=== PATIENT | male | born 1965 ===

== ENCOUNTER 2023-04-09 14:21 | Inpatient (IN) | payer MEDICARE, MEDICAID, SELFPAY ==
[2023-04-09 14:31] VITALS: BP 199/119; PULSE 62; RESP 18; TEMP 36.7; O2SAT 97
[2023-04-09] MEDS: cloNIDine HCL 0.1 MG TABLET PO ×2 (15:44→20:16)
--- NOTE | 2023-04-09 17:06 | P.CONHOSP_ITS ---
History of Present Illness Data of Consult Service Date: 04/09/23 Requesting physician: Molly Morales Primary Care Provider: Nonstaff Physician HPI Reason for consult: medical h&p, uncontrolled bp 58-year-old male with history of hypertension, hyperlipidemia, GERD, nephrolithiasis admitted to Psychiatry with consult placed hospital service for medical H and P in for evaluation of elevated blood pressure. The patient has been noncompliant with medications. He has no recent prescriptions of any antihypertensives but it does appear at 1 point he was prescribed amlodipine 10 mg. On arrival to the unit, blood pressure was 199/119. In the ED, blood pressures were 188/106 and 172/108. Patient was given 0.1 mg clonidine about 1.5 hours ago and on manual recheck by me, blood pressure is 130/90. He has no complaints at this time. On review of ED record, hematology studies unremarkable, renal function electrolyte levels normal. EKG showed NSR, rate [address]/T-wave abnormality. Urine tox screen positive for cocaine which he reports is inhaled only. Reports occasional alcohol use and is an occasional cigarette smoker. Review of Systems Review of Systems: General: No fevers, malaise, unintentional weight loss HEENT: No blurred vision, diplopia. No sore throat, nasal congestion, rhinorrhea, sinus pain, ear pain Cardiovascular: No chest pain, palpitations, or leg edema Respiratory: No shortness of breath, wheezing, cough GI: No abdominal pain, nausea, vomiting, diarrhea, constipation, melena, hematochezia : No dysuria, hematuria, increased urinary frequency, decreased urinary output MSK: No myalgia, back pain Neuro: No headaches, weakness, paresthesias Skin: No rashes or lesions [facility] Medical History (Updated 04/09/23 @ 17:09 by LAURO De Guzman) History of nephrolithiasis GERD (gastroesophageal reflux disease) Cocaine abuse Hyperlipidemia Hypertension Advance Directives: No Advance Directives Information Provided: Yes Meds Allergies Allergy/AdvReac Type Severity Reaction Status Date / Time No Known Allergies Allergy Verified 04/09/23 14:31 Active Medications: Current Medications Acetaminophen (Acetaminophen 325 Mg Tablet) 650 mg PO Q6H PRN PRN Reason: Headache/Pain Mild Scale (1-3) Al Hydroxide/Mg Hydroxide (Magnesium Hydrox/Alum Hydrox 30 Ml Oral.Susp) 30 ml PO Q6H PRN PRN Reason: Heartburn/Nausea Clonidine HCl (Clonidine Hcl 0.1 Mg Tablet) 0.1 mg PO BID PRN; Protocol PRN Reason: Anxiety Last Admin: 04/09/23 15:44 Dose: 0.1 mg Hydroxyzine HCl (Hydroxyzine Hcl 50 Mg Tablet) 50 mg PO BID PRN PRN Reason: Anxiety Magnesium Hydroxide (Milk Of Magnesia 30 Ml Oral.Susp) 30 ml PO DAILY PRN PRN Reason: Constipation Nicotine (Nicotine 14 Mg Patch.Td24) 14 mg TRANSDERMA DAILY MARGOTH Nicotine Polacrilex (Nicotine Polacrilex 2 Mg Gum) 4 mg BUCCAL Q2H PRN PRN Reason: Nicotine Cravings Trazodone HCl (Trazodone Hcl 50 Mg Tablet) 50 mg PO BEDTIME MRX1 PRN PRN Reason: Insomnia Home Medications Medication Instructions Recorded Confirmed Last Taken Type atorvastatin 20 mg tablet 20 mg PO BEDTIME 04/09/23 04/09/23 Unknown History clonidine HCl 0.1 mg tablet 0.1 mg PO BID PRN anxiety 04/09/23 04/09/23 Unknown History hydroxyzine pamoate 50 mg capsule 50 mg PO TID PRN anxiety 04/09/23 04/09/23 Unknown History paliperidone palmitate 234 mg/1.5 156 mg IM Q4W 04/09/23 04/09/23 Unknown History mL intramuscular syringe (Invega Sustenna) risperidone 0.25 mg tablet 0.25 mg PO BEDTIME 04/09/23 04/09/23 Unknown History trazodone 100 mg tablet 100 mg PO BEDTIME 04/09/23 04/09/23 Unknown History Physical Exam Vital Signs and Narrative: Vital Signs: Last Vital Signs Temp 98.1 F 04/09/23 14:31 Pulse 62 04/09/23 14:31 Resp 18 04/09/23 14:31 BP 199/119 H 04/09/23 14:31 Pulse Ox 97 04/09/23 14:31 O2 Del Method Room Air 04/09/23 14:31 Constitutional - Awake and Alert, No apparent distress Eyes - PERRLA, EOMI Cardiovascular - S1S2, RRR, No edema Respiratory - Normal lung expansion, Normal respiratory effort, No respiratory distress, CTA bilaterally Gastrointestinal - NT / ND; +BS; No rebound or guarding Extremities - no calf tenderness bilaterally, no swelling Musculoskeletal - Normal inspection, normal ROM Skin - Warm/Dry Neurological - Alert & oriented x3, CN II-XII in tact, 5/5 strength BUE and BLE Assessment and Plan (1) Routine medical exam: Status: Acute (2) Uncontrolled hypertension: Status: Acute Plan 58-year-old male with history of hypertension, hyperlipidemia, GERD, nephrolithiasis admitted to Psychiatry with consult placed hospital service for medical H and P in for evaluation of elevated blood pressure. #Mood disorder -plan per psychiatry #HTN -blood pressure uncontrolled though improved with 0.1mg clonidine. On manual recheck bp 130/90 -initiate amlodipine 5mg daily -monitor bp #HLD -continue atorvastatin Thank you for allowing me to participate in this consult. Signing off at this time. Please do not hesitate to call for further questions or for any acute medical issues.
[2023-04-09 17:09] VITALS: BP 130/90
--- NOTE | 2023-04-09 18:06 | PC.ADMIT ---
Heather was admitted to at 1430 from [facility] on a CV for treatment of Unspecified Schizophrenia and substance abuse. He was initially admitted to [facility] after relaying to sister voices were telling him to kill himself and endorsed SI with a plan to jump off a bridge. Upon wellness check, patient appeared disorientated, endorsing AVH and not performing ADL's. Upon admission, he is oriented to person and place but lacks insight on situation, I'm not really sure why they brought me here, I just remember nosey people taking me out of my home and brining me to the hospital . He was cooperative during admission process though appeared internally preoccupied, self dialoguing during entire interaction with this nurse. Stated he was currently hearing voices but would not elaborate on the context of what the voices were saying. Denies depression and current SI/HI but reported feeling anxious. Stated he was currently hearing voices but would not elaborate on context. When asked if the patient had thoughts of harming others he stated Sometimes, but not right now. I just feel like someone's going to hurt me . Affect flat, thought process is disorganized. Patient reports use of cocaine prior to admission and remote history of alcohol and marijuana use. Tox screen came back positive for cocaine. Reports poor sleep within last week and patient appeared to be nodding off towards end of admission assessment asking are we almost done, my brain is so foggy I just want to sleep . Denies any physical complaints, sharps check done with another nurse and patient placed on 15 minute checks for safety.
[2023-04-09 20:00] VITALS: BP 137/107; PULSE 83; RESP 18; TEMP 36.9; O2SAT 98
[2023-04-09] MEDS: Atorvastatin Calcium 20 MG TABLET PO (20:16)
[2023-04-09] MEDS: traZODone HCL 100 MG TABLET PO (20:16)
[2023-04-09 20:50] VITALS: BP 126/86; PULSE 68; RESP 18
[2023-04-09] MEDS: risperiDONE 0.25 MG TABLET PO (20:50)
[2023-04-10 07:46] VITALS: BP 136/92; PULSE 72; RESP 16; TEMP 36.5; O2SAT 100
[2023-04-10] MEDS: Nicotine 14 MG PATCH.TD24 TRANSDERMA (08:22)
[2023-04-10] MEDS: amLODIPine Besylate 5 MG TABLET PO (08:23)
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
[2023-04-10 09:29] LABS: MANUAL DIFF FLAG NO
[2023-04-10 09:34] LABS: Basophils Percent Auto 0.5 % (0-2); Eosinophils Absolute Auto 0.2 X10*3/uL (0.0-0.4); Eosinophils Percent Auto 3.2 % (0-4); Hematocrit 47.8 % (42.0-52.0); Hemoglobin 15.9 g/dl (14.0-18.0); Imm Gran Abs Auto 0.01 X10*3/uL (0.00-0.03); Imm Gran Pct Auto 0.2 % (0.0-0.4); Lymphocytes Absolute Auto 1.3 X10*3/uL (1.2-4.9); Lymphocytes Percent Auto 20.6 % (20-40); Mean Corpuscular HGB Conc 33.3 g/dl (31.0-36.0); Mean Corpuscular Hemoglobin 30.2 pg (27.0-33.0); Mean Corpuscular Volume 90.9 fL (80.0-98.0); Mean Platelet Volume 10.4 fL (9.4-12.4); Monocytes Absolute Auto 0.5 X10*3/uL (0.1-1.2); Monocytes Percent Auto 7.7 % (2-11); Neutrophils Absolute Auto 4.3 x10*3/uL (2.0-8.3); Neutrophils Percent Auto 67.8 % (45-73); Platelet Count 194 X10*3/uL (160-400); Red Blood Count 5.26 X10*6/uL (4.60-5.80); Red Cell Distribution Width 13.7 % (11.0-16.0); White Blood Count 6.3 X10*3/uL (4.8-10.8)
[2023-04-10 09:55] LABS: Alanine Aminotransferase 12 U/L (0-40); Alkaline Phosphatase 70 U/L (39-117); Anion Gap 11 (12-20); Aspartate Amino Transferase 12 U/L (5-37); Bilirubin Direct 0.2 mg/dL (0.0-0.5); Bilirubin Total 0.6 mg/dL (0.0-1.0); Blood Urea Nitrogen 20 mg/dL (9-16); Calcium 9.5 mg/dL (8.4-10.2); Carbon Dioxide 22 mmol/L (22-29); Chloride 111 mmol/L (96-108); Cholesterol 116 mg/dL (<200); Estimated Glomerular Filt Rate > 60; Glucose Fasting 86 mg/dL (60-99); HDL Cholesterol 47 mg/dL (>40); LDL Cholesterol Calculated 54 mg/dL (<100); Potassium 4.1 mmol/L (3.3-5.1); Sodium 140 mmol/L (135-145); Total Protein 7.1 g/dL (6.5-8.0); Triglycerides 75 mg/dL (<150)
[2023-04-10 10:11] LABS: Free T4 (Free Thyroxine) 1.19 ng/dL (0.71-1.85); Thyroid Stimulating Hormone 1.28 uIU/mL (0.32-4.0)
[2023-04-10 20:10] VITALS: BP 160/99; PULSE 65; RESP 15; TEMP 36.2; O2SAT 98
[2023-04-10] MEDS: risperiDONE 0.25 MG TABLET PO (20:10)
[2023-04-10] MEDS: Atorvastatin Calcium 20 MG TABLET PO (20:10)
[2023-04-10] MEDS: traZODone HCL 100 MG TABLET PO (20:10)
[2023-04-10] MEDS: hydrOXYzine HCL 50 MG TABLET PO (20:10)
[2023-04-11 07:00] VITALS: BMI 26.2
[2023-04-11 09:08] VITALS: BP 145/88; PULSE 96; RESP 18; TEMP 36.4; O2SAT 96
[2023-04-11] MEDS: amLODIPine Besylate 5 MG TABLET PO (09:10)
[2023-04-11] MEDS: Nicotine 14 MG PATCH.TD24 TRANSDERMA (09:54)
--- NOTE | 2023-04-11 12:23 | HO.PSYCHPN ---
Subjective Subjective Date of Service: 04/11/23 Reason For Visit: F20.9, F14.10 Interim History: The nursing staff reported the patient is a Compliant with treatment, anxious and depressed denies active auditory hallucinations on interview. He slept 8 hours. On interview also he denies side effects with current treatment he looks dysphoric but able to contract for safety. Mental Status Exam Mental Status Exam Patient Appearance: Appropriate Patient Orientation: Person and Situation Level of Consciousness: Awake and Appropriate Patient Behavior: Guarded and Passive Mood Description: Withdrawn Affect Description: Constricted Patient Cognition Impaired: Yes Ability to Follow Directions: Good Speech Pattern: Clear Hallucinations: None Delusions: Paranoid Ideation Thought Process: Distracted and Slowed Thinking Thought Content: positive for [place] and positive for Circumstantial Judgement: Fair Diagnostics Vital Signs (24Hr): Vital Signs - 24 hr 04/10/23 20:10 04/11/23 09:08 Temperature 97.1 F 97.5 F Pulse Rate 65 96 Respiratory Rate 15 18 Blood Pressure 160/99 H 145/88 H Pulse Oximetry 98 96 Oxygen Delivery Method Room Air Room Air Labs 04/10/23 09:07 04/10/23 09:07 Labs: Laboratory Results - last 48 hr 04/10/23 09:07 WBC 6.3 RBC 5.26 Hgb 15.9 Hct 47.8 MCV 90.9 MCH 30.2 MCHC 33.3 RDW 13.7 Plt Count 194 MPV 10.4 Immature Gran % (Auto) 0.2 Neut % (Auto) 67.8 Lymph % (Auto) 20.6 [place] % (Auto) 7.7 Eos % (Auto) 3.2 Baso % (Auto) 0.5 Lymph # (Auto) 1.3 [place] # (Auto) 0.5 Eos # (Auto) 0.2 Baso # (Auto) 0.0 Abs Immat Gran (auto) 0.01 Absolute Neuts (auto) 4.3 Absolute Nucleated RBC 0.000 Nucleated RBC % (auto) 0.0 Sodium 140 Potassium 4.1 Chloride 111 H Carbon Dioxide 22 Anion Gap 11 L BUN 20 H Creatinine 0.98 Estim Creat Clear Calc TNP Estimated GFR > 60 Fasting Glucose 86 Calcium 9.5 Total Bilirubin 0.6 Direct Bilirubin 0.2 AST 12 ALT 12 Alkaline Phosphatase 70 Total Protein 7.1 Albumin 4.0 Triglycerides 75 Cholesterol 116 LDL Cholesterol, Calc 54 HDL Cholesterol 47 TSH 1.28 Free T4 1.19 Medications Medications Current Medications Acetaminophen (Acetaminophen 325 Mg Tablet) 650 mg PO Q6H PRN PRN Reason: Headache/Pain Mild Scale (1-3) Al Hydroxide/Mg Hydroxide (Magnesium Hydrox/Alum Hydrox 30 Ml Oral.Susp) 30 ml PO Q6H PRN PRN Reason: Heartburn/Nausea Amlodipine Besylate (Amlodipine Besylate 5 Mg Tablet) 5 mg PO DAILY MARGOTH; Protocol Last Admin: 04/11/23 09:10 Dose: 5 mg Atorvastatin Calcium (Atorvastatin Calcium 20 Mg Tablet) 20 mg PO BEDTIME MARGOTH Last Admin: 04/10/23 20:10 Dose: 20 mg Clonidine HCl (Clonidine Hcl 0.1 Mg Tablet) 0.1 mg PO BID PRN; Protocol PRN Reason: Anxiety Last Admin: 04/09/23 15:44 Dose: 0.1 mg Clonidine HCl (Clonidine Hcl 0.1 Mg Tablet) 0.1 mg PO BID PRN; Protocol PRN Reason: anxiety Last Admin: 04/09/23 20:16 Dose: 0.1 mg Hydroxyzine HCl (Hydroxyzine Hcl 50 Mg Tablet) 50 mg PO TID PRN PRN Reason: anxiety Last Admin: 04/10/23 20:10 Dose: 50 mg Magnesium Hydroxide (Milk Of Magnesia 30 Ml Oral.Susp) 30 ml PO DAILY PRN PRN Reason: Constipation Nicotine (Nicotine 14 Mg Patch.Td24) 14 mg TRANSDERMA DAILY [facility] Last Admin: 04/11/23 09:54 Dose: 14 mg Nicotine Polacrilex (Nicotine Polacrilex 2 Mg Gum) 4 mg BUCCAL Q2H PRN PRN Reason: Nicotine Cravings Paliperidone Palmitate (Paliperidone Palmitate 234 Mg/1.5 Ml Syringe) 234 mg IM Q28D [facility] Risperidone (Risperidone 0.25 Mg Tablet) 0.25 mg PO BEDTIME MARGOTH Last Admin: 04/10/23 20:10 Dose: 0.25 mg Trazodone HCl (Trazodone Hcl 50 Mg Tablet) 50 mg PO BEDTIME MRX1 PRN PRN Reason: Insomnia Trazodone HCl (Trazodone Hcl 100 Mg Tablet) 100 mg PO BEDTIME MARGOTH Last Admin: 04/10/23 20:10 Dose: 100 mg Allergies Allergies Allergy/AdvReac Type Severity Reaction Status Date / Time No Known Allergies Allergy Verified 04/09/23 14:31 Assessment & Plan Assessment & Plan (1) Schizophrenia: Status: Acute Code(s): F20.9 - Schizophrenia, unspecified (2) Opioid abuse: Status: Acute Code(s): F11.10 - Opioid abuse, uncomplicated Plan Patient is a 58 year old male with hx of Schizophrenia and polysubstance use who presented to [facility] ER secondary to concern from his sister and ACCS worker d/t pt telling his sister that the voices were telling him to kill himself and endorsed suicidal ideation with plan to jump off a bridge. Plan: CV 15 minute safety checks obtain collateral continue home medications. Possible section 35 by family clarify last dose of invega inj monitor for suicidality encourage sobriety Reason for continued inpatient stay Substantial Risk for: inability to function, rapid decompensation and med/psych decompensation Time Spent With Patient Time: Total time managing care of this patient today __20__ minutes.
[2023-04-11 21:20] VITALS: BP 160/102; PULSE 75; RESP 18; TEMP 36.7; O2SAT 98
[2023-04-11] MEDS: traZODone HCL 100 MG TABLET PO (21:23)
[2023-04-11] MEDS: cloNIDine HCL 0.1 MG TABLET PO (21:23)
[2023-04-11] MEDS: risperiDONE 0.25 MG TABLET PO (21:23)
[2023-04-11] MEDS: Atorvastatin Calcium 20 MG TABLET PO (21:23)
[2023-04-12 07:10] VITALS: BP 168/108; PULSE 78; TEMP 36.3; O2SAT 99
[2023-04-12] MEDS: amLODIPine Besylate 5 MG TABLET PO (07:50)
[2023-04-12] MEDS: Nicotine 14 MG PATCH.TD24 TRANSDERMA (07:50)
--- NOTE | 2023-04-12 08:51 | P.PNPSI_ITS ---
Subjective Subjective Date of Service: 04/12/23 Reason For Visit: F20.9, F14.10 Subjective Notes: Conditional Voluntary Interim History: Pt reports he feels better in that less voices and he feels calmer. He states I'm doing what everyone wants me to do, taking care of everything. He does report voices of male and female continue to happen and are disturbing to him, he asks for additional medication for voices. He was started on low dose of risperidone, will increase to 1mg po qhs. he is also on invega sustenna 234mg IM- due in 04/24, may be able to give it sooner. Review of Systems Review of Systems General: No fevers, malaise, unintentional weight loss HEENT: No blurred vision, diplopia. No sore throat, nasal congestion, rhinorrhea, sinus pain, ear pain Cardiovascular: No chest pain, palpitations, or leg edema Respiratory: No shortness of breath, wheezing, cough GI: No abdominal pain, nausea, vomiting, diarrhea, constipation, melena, hematochezia : No dysuria, hematuria, increased urinary frequency, decreased urinary output MSK: No myalgia, back pain Neuro: No headaches, weakness, paresthesias Skin: No rashes or lesions Constitutional: Reports as per HPI Eyes: Reports as per HPI Reports as per HPI Cardiovascular: Reports as per HPI Respiratory: Reports as per HPI Gastrointestinal: Reports as per HPI Genitourinary: Reports as per HPI Musculoskeletal: Reports as per HPI Skin/Breast: Reports as per HPI Reports as per HPI Psychiatric: Reports as per HPI Endocrine: Reports as per HPI Hematologic/Lymphatic: Reports as per HPI Allergic/Immunologic: Reports as per HPI Mental Status Exam Mental Status Exam Patient Appearance: Appropriate Patient Orientation: Person and Situation Level of Consciousness: Awake and Appropriate Patient Behavior: Guarded and Passive Mood Description: Withdrawn Affect Description: Constricted Patient Cognition Impaired: Yes Ability to Follow Directions: Good Speech Pattern: Clear Diagnostics Vital Signs (24Hr): Vital Signs - 24 hr 04/11/23 09:08 04/11/23 21:20 04/12/23 07:10 Temperature 97.5 F 98.1 F 97.3 F Pulse Rate 96 75 78 Respiratory Rate 18 18 Blood Pressure 145/88 H 160/102 H 168/108 H Pulse Oximetry 96 98 66 L Oxygen Delivery Method Room Air Room Air Room Air BMI result Body Mass Index 26.2 Labs 04/10/23 09:07 04/10/23 09:07 Labs: Laboratory Results - last 48 hr 04/10/23 09:07 WBC 6.3 RBC 5.26 Hgb 15.9 Hct 47.8 MCV 90.9 MCH 30.2 MCHC 33.3 RDW 13.7 Plt Count 194 MPV 10.4 Immature Gran % (Auto) 0.2 Neut % (Auto) 67.8 Lymph % (Auto) 20.6 [place] % (Auto) 7.7 Eos % (Auto) 3.2 Baso % (Auto) 0.5 Lymph # (Auto) 1.3 [place] # (Auto) 0.5 Eos # (Auto) 0.2 Baso # (Auto) 0.0 Abs Immat Gran (auto) 0.01 Absolute Neuts (auto) 4.3 Absolute Nucleated RBC 0.000 Nucleated RBC % (auto) 0.0 Sodium 140 Potassium 4.1 Chloride 111 H Carbon Dioxide 22 Anion Gap 11 L BUN 20 H Creatinine 0.98 Estim Creat Clear Calc TNP Estimated GFR > 60 Fasting Glucose 86 Calcium 9.5 Total Bilirubin 0.6 Direct Bilirubin 0.2 AST 12 ALT 12 Alkaline Phosphatase 70 Total Protein 7.1 Albumin 4.0 Triglycerides 75 Cholesterol 116 LDL Cholesterol, Calc 54 HDL Cholesterol 47 TSH 1.28 Free T4 1.19 Medications Medications Current Medications Acetaminophen (Acetaminophen 325 Mg Tablet) 650 mg PO Q6H PRN PRN Reason: Headache/Pain Mild Scale (1-3) Al Hydroxide/Mg Hydroxide (Magnesium Hydrox/Alum Hydrox 30 Ml Oral.Susp) 30 ml PO Q6H PRN PRN Reason: Heartburn/Nausea Amlodipine Besylate (Amlodipine Besylate 5 Mg Tablet) 5 mg PO DAILY MARGOTH; Protocol Last Admin: 04/12/23 07:50 Dose: 5 mg Atorvastatin Calcium (Atorvastatin Calcium 20 Mg Tablet) 20 mg PO BEDTIME MARGOTH Last Admin: 04/11/23 21:23 Dose: 20 mg Clonidine HCl (Clonidine Hcl 0.1 Mg Tablet) 0.1 mg PO BID PRN; Protocol PRN Reason: Anxiety Last Admin: 04/11/23 21:23 Dose: 0.1 mg Clonidine HCl (Clonidine Hcl 0.1 Mg Tablet) 0.1 mg PO BID PRN; Protocol PRN Reason: anxiety Last Admin: 04/09/23 20:16 Dose: 0.1 mg Hydroxyzine HCl (Hydroxyzine Hcl 50 Mg Tablet) 50 mg PO TID PRN PRN Reason: anxiety Last Admin: 04/10/23 20:10 Dose: 50 mg Magnesium Hydroxide (Milk Of Magnesia 30 Ml Oral.Susp) 30 ml PO DAILY PRN PRN Reason: Constipation Nicotine (Nicotine 14 Mg Patch.Td24) 14 mg TRANSDERMA DAILY MARGOTH Last Admin: 04/12/23 07:50 Dose: 14 mg Nicotine Polacrilex (Nicotine Polacrilex 2 Mg Gum) 4 mg BUCCAL Q2H PRN PRN Reason: Nicotine Cravings Paliperidone Palmitate (Paliperidone Palmitate 234 Mg/1.5 Ml Syringe) 234 mg IM Q28D MARGOTH Risperidone (Risperidone 0.25 Mg Tablet) 0.25 mg PO BEDTIME MARGOTH Last Admin: 04/11/23 21:23 Dose: 0.25 mg Trazodone HCl (Trazodone Hcl 50 Mg Tablet) 50 mg PO BEDTIME MRX1 PRN PRN Reason: Insomnia Trazodone HCl (Trazodone Hcl 100 Mg Tablet) 100 mg PO BEDTIME MARGOTH Last Admin: 04/11/23 21:23 Dose: 100 mg Allergies Allergies Allergy/AdvReac Type Severity Reaction Status Date / Time No Known Allergies Allergy Verified 04/09/23 14:31 Assessment & Plan Assessment & Plan (1) Schizophrenia: Status: Acute Code(s): F20.9 - Schizophrenia, unspecified (2) Opioid abuse: Status: Acute Code(s): F11.10 - Opioid abuse, uncomplicated Plan Patient is a 58 year old male with hx of Schizophrenia and polysubstance use who presented to [facility] ER secondary to concern from his sister and ACCS worker d/t pt telling his sister that the voices were telling him to kill himself and endorsed suicidal ideation with plan to jump off a bridge. Plan: 04/12 increase risperidone to 1mg po qhs. He is also on Invega Sustenna 234mg IM, due in 04/24. clarify medication trial and see it he may respond better to different antipsychotic. Reason for continued inpatient stay Substantial Risk for: inability to function Time Spent With Patient Time: Total time managing care of this patient today ____ minutes.
[2023-04-12 19:48] VITALS: BP 171/93; PULSE 63; TEMP 36.7; O2SAT 98
[2023-04-12] MEDS: hydrOXYzine HCL 50 MG TABLET PO (23:59)
[2023-04-12] MEDS: traZODone HCL 50 MG TABLET PO (23:59)
[2023-04-12] MEDS: risperiDONE 1 MG TABLET PO (23:59)
[2023-04-12] MEDS: Atorvastatin Calcium 20 MG TABLET PO (23:59)
[2023-04-12] MEDS: traZODone HCL 100 MG TABLET PO (23:59)
[2023-04-13 07:30] VITALS: BP 163/105; PULSE 68; TEMP 36.3; O2SAT 97
[2023-04-13] MEDS: Nicotine 14 MG PATCH.TD24 TRANSDERMA (08:17)
[2023-04-13] MEDS: amLODIPine Besylate 5 MG TABLET PO (08:17)
--- NOTE | 2023-04-13 14:05 | HO.PSYCHPN ---
Subjective Subjective Date of Service: 04/13/23 Reason For Visit: F20.9, F14.10 Subjective Notes: Conditional Voluntary Interim History: Pt reports less voices with increase dose of risperidone. He reports sleeping and eating well. He has been more visible on the unit. NO behavioral concerns. No SI/HI. Taking medications as prescribed. Review of Systems Review of Systems General: No fevers, malaise, unintentional weight loss HEENT: No blurred vision, diplopia. No sore throat, nasal congestion, rhinorrhea, sinus pain, ear pain Cardiovascular: No chest pain, palpitations, or leg edema Respiratory: No shortness of breath, wheezing, cough GI: No abdominal pain, nausea, vomiting, diarrhea, constipation, melena, hematochezia : No dysuria, hematuria, increased urinary frequency, decreased urinary output MSK: No myalgia, back pain Neuro: No headaches, weakness, paresthesias Skin: No rashes or lesions Constitutional: Reports as per HPI Eyes: Reports as per HPI Reports as per HPI Cardiovascular: Reports as per HPI Respiratory: Reports as per HPI Gastrointestinal: Reports as per HPI Genitourinary: Reports as per HPI Musculoskeletal: Reports as per HPI Skin/Breast: Reports as per HPI Reports as per HPI Psychiatric: Reports as per HPI Endocrine: Reports as per HPI Hematologic/Lymphatic: Reports as per HPI Allergic/Immunologic: Reports as per HPI Mental Status Exam Mental Status Exam Patient Appearance: Appropriate Patient Orientation: Person and Situation Level of Consciousness: Awake and Appropriate Patient Behavior: Guarded and Passive Mood Description: Withdrawn Affect Description: Constricted Patient Cognition Impaired: Yes Ability to Follow Directions: Good Speech Pattern: Clear Diagnostics Vital Signs (24Hr): Vital Signs - 24 hr 04/12/23 19:48 04/13/23 07:30 Temperature 98.0 F 97.3 F Pulse Rate 63 68 Blood Pressure 171/93 H 163/105 H Pulse Oximetry 98 97 Oxygen Delivery Method Room Air Room Air BMI result Body Mass Index 26.2 Labs 04/10/23 09:07 04/10/23 09:07 Medications Medications Current Medications Acetaminophen (Acetaminophen 325 Mg Tablet) 650 mg PO Q6H PRN PRN Reason: Headache/Pain Mild Scale (1-3) Al Hydroxide/Mg Hydroxide (Magnesium Hydrox/Alum Hydrox 30 Ml Oral.Susp) 30 ml PO Q6H PRN PRN Reason: Heartburn/Nausea Amlodipine Besylate (Amlodipine Besylate 5 Mg Tablet) 5 mg PO DAILY MARGOTH; Protocol Last Admin: 04/13/23 08:17 Dose: 5 mg Atorvastatin Calcium (Atorvastatin Calcium 20 Mg Tablet) 20 mg PO BEDTIME MARGOTH Last Admin: 04/12/23 23:59 Dose: 20 mg Clonidine HCl (Clonidine Hcl 0.1 Mg Tablet) 0.1 mg PO BID PRN; Protocol PRN Reason: Anxiety Last Admin: 04/11/23 21:23 Dose: 0.1 mg Clonidine HCl (Clonidine Hcl 0.1 Mg Tablet) 0.1 mg PO BID PRN; Protocol PRN Reason: anxiety Last Admin: 04/09/23 20:16 Dose: 0.1 mg Hydroxyzine HCl (Hydroxyzine Hcl 50 Mg Tablet) 50 mg PO TID PRN PRN Reason: anxiety Last Admin: 04/12/23 23:59 Dose: 50 mg Magnesium Hydroxide (Milk Of Magnesia 30 Ml Oral.Susp) 30 ml PO DAILY PRN PRN Reason: Constipation Nicotine (Nicotine 14 Mg Patch.Td24) 14 mg TRANSDERMA DAILY [facility] Last Admin: 04/13/23 08:17 Dose: 14 mg Nicotine Polacrilex (Nicotine Polacrilex 2 Mg Gum) 4 mg BUCCAL Q2H PRN PRN Reason: Nicotine Cravings Paliperidone Palmitate (Paliperidone Palmitate 234 Mg/1.5 Ml Syringe) 234 mg IM Q28D MARGOTH Risperidone (Risperidone 1 Mg Tablet) 1 mg PO BEDTIME MARGOTH Last Admin: 04/12/23 23:59 Dose: 1 mg Trazodone HCl (Trazodone Hcl 50 Mg Tablet) 50 mg PO BEDTIME MRX1 PRN PRN Reason: Insomnia Last Admin: 04/12/23 23:59 Dose: 50 mg Trazodone HCl (Trazodone Hcl 100 Mg Tablet) 100 mg PO BEDTIME MARGOTH Last Admin: 04/12/23 23:59 Dose: 100 mg Allergies Allergies Allergy/AdvReac Type Severity Reaction Status Date / Time No Known Allergies Allergy Verified 04/09/23 14:31 Assessment & Plan Assessment & Plan (1) Schizophrenia: Status: Acute Code(s): F20.9 - Schizophrenia, unspecified (2) Opioid abuse: Status: Acute Code(s): F11.10 - Opioid abuse, uncomplicated Plan Patient is a 58 year old male with hx of Schizophrenia and polysubstance use who presented to [facility] ER secondary to concern from his sister and ACCS worker d/t pt telling his sister that the voices were telling him to kill himself and endorsed suicidal ideation with plan to jump off a bridge. Plan: 04/12 increase risperidone to 1mg po qhs. He is also on Invega Sustenna 234mg IM, due in 04/24. clarify medication trial and see it he may respond better to different antipsychotic. 04/13 continue tx. Reason for continued inpatient stay Substantial Risk for: inability to function Time Spent With Patient Time: Total time managing care of this patient today ____ minutes.
[2023-04-13 19:35] VITALS: BP 177/113; PULSE 68; RESP 16; TEMP 36.9; O2SAT 97
[2023-04-13] MEDS: Atorvastatin Calcium 20 MG TABLET PO (21:30)
[2023-04-13] MEDS: cloNIDine HCL 0.1 MG TABLET PO (21:31)
[2023-04-13] MEDS: risperiDONE 1 MG TABLET PO (21:31)
[2023-04-13] MEDS: traZODone HCL 100 MG TABLET PO (21:31)
[2023-04-13 21:39] VITALS: BP 170/100
[2023-04-13 22:46] VITALS: BP 146/76; PULSE 57; RESP 16; TEMP 36.8; O2SAT 98
[2023-04-14 07:10] VITALS: BP 169/98; PULSE 61; RESP 20; TEMP 36.7; O2SAT 97
[2023-04-14] MEDS: amLODIPine Besylate 5 MG TABLET PO ×2 (08:22→10:09)
[2023-04-14 09:40] VITALS: BP 164/100
[2023-04-14 16:30] VITALS: BP 138/98
--- NOTE | 2023-04-14 16:40 | HO.PSYCHPN ---
Subjective Subjective Date of Service: 04/14/23 Reason For Visit: F20.9, F14.10 Subjective Notes: Conditional Voluntary Interim History: Pt reports overall feel better. Pt reports less voices with increase dose of risperidone. He reports sleeping and eating well. He has been more visible on the unit. NO behavioral concerns. No SI/HI. Taking medications as prescribed. Review of Systems Review of Systems General: No fevers, malaise, unintentional weight loss HEENT: No blurred vision, diplopia. No sore throat, nasal congestion, rhinorrhea, sinus pain, ear pain Cardiovascular: No chest pain, palpitations, or leg edema Respiratory: No shortness of breath, wheezing, cough GI: No abdominal pain, nausea, vomiting, diarrhea, constipation, melena, hematochezia : No dysuria, hematuria, increased urinary frequency, decreased urinary output MSK: No myalgia, back pain Neuro: No headaches, weakness, paresthesias Skin: No rashes or lesions Constitutional: Reports as per HPI Eyes: Reports as per HPI Reports as per HPI Cardiovascular: Reports as per HPI Respiratory: Reports as per HPI Gastrointestinal: Reports as per HPI Genitourinary: Reports as per HPI Musculoskeletal: Reports as per HPI Skin/Breast: Reports as per HPI Reports as per HPI Psychiatric: Reports as per HPI Endocrine: Reports as per HPI Hematologic/Lymphatic: Reports as per HPI Allergic/Immunologic: Reports as per HPI Mental Status Exam Mental Status Exam Patient Appearance: Appropriate Patient Orientation: Person and Situation Level of Consciousness: Awake and Appropriate Patient Behavior: Guarded and Passive Mood Description: Withdrawn Affect Description: Constricted Patient Cognition Impaired: Yes Ability to Follow Directions: Good Speech Pattern: Clear Diagnostics Vital Signs (24Hr): Vital Signs - 24 hr 04/13/23 19:35 04/13/23 21:39 04/13/23 22:46 Temperature 98.4 F 98.2 F Pulse Rate 68 57 Respiratory Rate 16 16 Blood Pressure 177/113 H 170/100 H 146/76 H Pulse Oximetry 97 98 Oxygen Delivery Method Room Air Room Air 04/14/23 07:10 Temperature 98.1 F Pulse Rate 61 Respiratory Rate 20 Blood Pressure 169/98 H Pulse Oximetry 97 Oxygen Delivery Method Room Air BMI result Body Mass Index 26.2 Labs 04/10/23 09:07 04/10/23 09:07 Medications Medications Current Medications Acetaminophen (Acetaminophen 325 Mg Tablet) 650 mg PO Q6H PRN PRN Reason: Headache/Pain Mild Scale (1-3) Al Hydroxide/Mg Hydroxide (Magnesium Hydrox/Alum Hydrox 30 Ml Oral.Susp) 30 ml PO Q6H PRN PRN Reason: Heartburn/Nausea Amlodipine Besylate (Amlodipine Besylate 10 Mg Tablet) 10 mg PO DAILY MARGOTH; Protocol Atorvastatin Calcium (Atorvastatin Calcium 20 Mg Tablet) 20 mg PO BEDTIME MARGOTH Last Admin: 04/13/23 21:30 Dose: 20 mg Clonidine HCl (Clonidine Hcl 0.1 Mg Tablet) 0.1 mg PO BID PRN; Protocol PRN Reason: Anxiety Last Admin: 04/13/23 21:31 Dose: 0.1 mg Clonidine HCl (Clonidine Hcl 0.1 Mg Tablet) 0.1 mg PO BID PRN; Protocol PRN Reason: anxiety Last Admin: 04/09/23 20:16 Dose: 0.1 mg Hydroxyzine HCl (Hydroxyzine Hcl 50 Mg Tablet) 50 mg PO TID PRN PRN Reason: anxiety Last Admin: 04/12/23 23:59 Dose: 50 mg Magnesium Hydroxide (Milk Of Magnesia 30 Ml Oral.Susp) 30 ml PO DAILY PRN PRN Reason: Constipation Nicotine (Nicotine 14 Mg Patch.Td24) 14 mg TRANSDERMA DAILY MARGOTH Last Admin: 04/14/23 08:24 Dose: Not Given Nicotine Polacrilex (Nicotine Polacrilex 2 Mg Gum) 4 mg BUCCAL Q2H PRN PRN Reason: Nicotine Cravings Paliperidone Palmitate (Paliperidone Palmitate 234 Mg/1.5 Ml Syringe) 234 mg IM Q28D MARGOTH Risperidone (Risperidone 1 Mg Tablet) 1 mg PO BEDTIME MARGOTH Last Admin: 04/13/23 21:31 Dose: 1 mg Trazodone HCl (Trazodone Hcl 50 Mg Tablet) 50 mg PO BEDTIME MRX1 PRN PRN Reason: Insomnia Last Admin: 04/12/23 23:59 Dose: 50 mg Trazodone HCl (Trazodone Hcl 100 Mg Tablet) 100 mg PO BEDTIME MARGOTH Last Admin: 04/13/23 21:31 Dose: 100 mg Allergies Allergies Allergy/AdvReac Type Severity Reaction Status Date / Time No Known Allergies Allergy Verified 04/09/23 14:31 Assessment & Plan Assessment & Plan (1) Schizophrenia: Status: Acute Code(s): F20.9 - Schizophrenia, unspecified (2) Opioid abuse: Status: Acute Code(s): F11.10 - Opioid abuse, uncomplicated Plan Patient is a 58 year old male with hx of Schizophrenia and polysubstance use who presented to [facility] ER secondary to concern from his sister and ACCS worker d/t pt telling his sister that the voices were telling him to kill himself and endorsed suicidal ideation with plan to jump off a bridge. Plan: 04/12 increase risperidone to 1mg po qhs. He is also on Invega Sustenna 234mg IM, due in 04/24. clarify medication trial and see it he may respond better to different antipsychotic. 04/13 continue tx. 04/14 continue tx. Reason for continued inpatient stay Substantial Risk for: inability to function Time Spent With Patient Time: Total time managing care of this patient today ____ minutes.
[2023-04-14 20:20] VITALS: BP 175/97; PULSE 71; TEMP 37; O2SAT 99
[2023-04-14] MEDS: hydrOXYzine HCL 50 MG TABLET PO (20:55)
[2023-04-14] MEDS: risperiDONE 1 MG TABLET PO (20:56)
[2023-04-14] MEDS: Atorvastatin Calcium 20 MG TABLET PO (20:56)
[2023-04-14] MEDS: traZODone HCL 100 MG TABLET PO (20:56)
[2023-04-14] MEDS: cloNIDine HCL 0.1 MG TABLET PO (20:57)
[2023-04-14 21:00] VITALS: BP 113/75; PULSE 76; RESP 16; O2SAT 97
[2023-04-14 22:14] VITALS: BP 113/75; PULSE 76; RESP 16; O2SAT 97
[2023-04-15 07:50] VITALS: BP 159/96; PULSE 63; TEMP 36.2; O2SAT 99
[2023-04-15] MEDS: amLODIPine Besylate 10 MG TABLET PO (08:49)
--- NOTE | 2023-04-15 15:14 | HO.PSYCHPN ---
Subjective Subjective Date of Service: 04/15/23 Reason For Visit: F20.9, F14.10 Interim History: states he is feeling pretty good. denies any SI/SIBI or AH since he was admitted. avers he is interested in rehab, MORENITA Kirk will pursue referrals. per staff, dep/anx 5. says today less depressed, however. visible, pacing, preoccupied. slept about 7 hours overnight. Mental Status Exam Mental Status Exam Narrative: Pt is alert and oriented; behavior is calm; dressed in casual attire; mood is described as pretty good ; eye contact appropriate; Speech is normal rate, volume and prosody and not pressured; no psychomotor agitation/retardation present; thought process is organized and goal directed; Thought content is on tx; denies SI/SIBI/HI/AVH. reports MRE of SI and AH prior to admission. Patients insight and judgment are fair. Diagnostics Vital Signs (24Hr): Vital Signs - 24 hr 04/14/23 16:30 04/14/23 20:20 04/14/23 21:00 Temperature 98.6 F Pulse Rate 71 76 Respiratory Rate 16 Blood Pressure 138/98 H 175/97 H 113/75 Pulse Oximetry 99 97 Oxygen Delivery Method Room Air Room Air 04/14/23 22:14 04/15/23 07:50 Temperature 97.2 F Pulse Rate 76 63 Respiratory Rate 16 Blood Pressure 113/75 159/96 H Pulse Oximetry 97 99 Oxygen Delivery Method Room Air Room Air BMI result Body Mass Index 26.2 Labs 04/10/23 09:07 04/10/23 09:07 Medications Medications Current Medications Acetaminophen (Acetaminophen 325 Mg Tablet) 650 mg PO Q6H PRN PRN Reason: Headache/Pain Mild Scale (1-3) Al Hydroxide/Mg Hydroxide (Magnesium Hydrox/Alum Hydrox 30 Ml Oral.Susp) 30 ml PO Q6H PRN PRN Reason: Heartburn/Nausea Amlodipine Besylate (Amlodipine Besylate 10 Mg Tablet) 10 mg PO DAILY MARGOTH; Protocol Last Admin: 04/15/23 08:49 Dose: 10 mg Atorvastatin Calcium (Atorvastatin Calcium 20 Mg Tablet) 20 mg PO BEDTIME MARGOTH Last Admin: 04/14/23 20:56 Dose: 20 mg Clonidine HCl (Clonidine Hcl 0.1 Mg Tablet) 0.1 mg PO BID PRN; Protocol PRN Reason: Anxiety Last Admin: 04/14/23 20:57 Dose: 0.1 mg Clonidine HCl (Clonidine Hcl 0.1 Mg Tablet) 0.1 mg PO BID PRN; Protocol PRN Reason: anxiety Last Admin: 04/09/23 20:16 Dose: 0.1 mg Hydroxyzine HCl (Hydroxyzine Hcl 50 Mg Tablet) 50 mg PO TID PRN PRN Reason: anxiety Last Admin: 04/14/23 20:55 Dose: 50 mg Magnesium Hydroxide (Milk Of Magnesia 30 Ml Oral.Susp) 30 ml PO DAILY PRN PRN Reason: Constipation Nicotine (Nicotine 14 Mg Patch.Td24) 14 mg TRANSDERMA DAILY MARGOTH Last Admin: 04/15/23 08:50 Dose: Not Given Nicotine Polacrilex (Nicotine Polacrilex 2 Mg Gum) 4 mg BUCCAL Q2H PRN PRN Reason: Nicotine Cravings Paliperidone Palmitate (Paliperidone Palmitate 234 Mg/1.5 Ml Syringe) 234 mg IM Q28D MARGOTH Risperidone (Risperidone 1 Mg Tablet) 1 mg PO BEDTIME MARGOTH Last Admin: 04/14/23 20:56 Dose: 1 mg Trazodone HCl (Trazodone Hcl 50 Mg Tablet) 50 mg PO BEDTIME MRX1 PRN PRN Reason: Insomnia Last Admin: 04/12/23 23:59 Dose: 50 mg Trazodone HCl (Trazodone Hcl 100 Mg Tablet) 100 mg PO BEDTIME MARGOTH Last Admin: 04/14/23 20:56 Dose: 100 mg Allergies Allergies Allergy/AdvReac Type Severity Reaction Status Date / Time No Known Allergies Allergy Verified 04/09/23 14:31 Assessment & Plan Assessment & Plan (1) Schizophrenia: Status: Acute Code(s): F20.9 - Schizophrenia, unspecified (2) Opioid abuse: Status: Acute Code(s): F11.10 - Opioid abuse, uncomplicated Plan Patient is a 58 year old male with hx of Schizophrenia and polysubstance use who presented to [facility] ER secondary to concern from his sister and ACCS worker d/t pt telling his sister that the voices were telling him to kill himself and endorsed suicidal ideation with plan to jump off a bridge. Plan: 04/12 increase risperidone to 1mg po qhs. He is also on Invega Sustenna 234mg IM, due in 04/24. clarify medication trial and see it he may respond better to different antipsychotic. 04/13 continue tx. 04/14 continue tx. 04/05: pt reports he is feeling improved. denies SI/AH. continue current mgmt. Reason for continued inpatient stay Substantial Risk for: harm to self, inability to function and rapid decompensation Time Spent With Patient Time: Total time managing care of this patient today __35__ minutes.
[2023-04-15 20:00] VITALS: BP 138/86; PULSE 72; RESP 16; TEMP 36.4; O2SAT 96
[2023-04-15] MEDS: Atorvastatin Calcium 20 MG TABLET PO (20:28)
[2023-04-15] MEDS: traZODone HCL 100 MG TABLET PO (20:28)
[2023-04-15] MEDS: risperiDONE 1 MG TABLET PO (20:28)
[2023-04-16 08:16] VITALS: BP 170/89; PULSE 74; RESP 16; TEMP 36.3; O2SAT 98
[2023-04-16] MEDS: amLODIPine Besylate 10 MG TABLET PO (08:26)
--- NOTE | 2023-04-16 15:43 | HO.PSYCHPN ---
Subjective Subjective Date of Service: 04/16/23 Reason For Visit: F20.9, F14.10 Interim History: calm, cooperative. reports eating, sleeping, getting along with others. stable, awaiting word from [facility]. Mental Status Exam Mental Status Exam Narrative: Pt is alert and oriented; behavior is calm; dressed in casual attire; mood is described as pretty good ; eye contact appropriate; Speech is normal rate, volume and prosody and not pressured; no psychomotor agitation/retardation present; thought process is organized and goal directed; Thought content is on tx; denies SI/SIBI/HI/AVH. reports MRE of SI and AH prior to admission. Patients insight and judgment are fair. Diagnostics Vital Signs (24Hr): Vital Signs - 24 hr 04/15/23 20:00 04/16/23 08:16 Temperature 97.5 F 97.3 F Pulse Rate 72 74 Respiratory Rate 16 16 Blood Pressure 138/86 170/89 H Pulse Oximetry 96 98 Oxygen Delivery Method Room Air Room Air BMI result Body Mass Index 26.2 Labs 04/10/23 09:07 04/10/23 09:07 Medications Medications Current Medications Acetaminophen (Acetaminophen 325 Mg Tablet) 650 mg PO Q6H PRN PRN Reason: Headache/Pain Mild Scale (1-3) Al Hydroxide/Mg Hydroxide (Magnesium Hydrox/Alum Hydrox 30 Ml Oral.Susp) 30 ml PO Q6H PRN PRN Reason: Heartburn/Nausea Amlodipine Besylate (Amlodipine Besylate 10 Mg Tablet) 10 mg PO DAILY MARGOTH; Protocol Last Admin: 04/16/23 08:26 Dose: 10 mg Atorvastatin Calcium (Atorvastatin Calcium 20 Mg Tablet) 20 mg PO BEDTIME MARGOTH Last Admin: 04/15/23 20:28 Dose: 20 mg Clonidine HCl (Clonidine Hcl 0.1 Mg Tablet) 0.1 mg PO BID PRN; Protocol PRN Reason: Anxiety Last Admin: 04/14/23 20:57 Dose: 0.1 mg Clonidine HCl (Clonidine Hcl 0.1 Mg Tablet) 0.1 mg PO BID PRN; Protocol PRN Reason: anxiety Last Admin: 04/09/23 20:16 Dose: 0.1 mg Hydroxyzine HCl (Hydroxyzine Hcl 50 Mg Tablet) 50 mg PO TID PRN PRN Reason: anxiety Last Admin: 04/14/23 20:55 Dose: 50 mg Magnesium Hydroxide (Milk Of Magnesia 30 Ml Oral.Susp) 30 ml PO DAILY PRN PRN Reason: Constipation Nicotine (Nicotine 14 Mg Patch.Td24) 14 mg TRANSDERMA DAILY [facility] Last Admin: 04/16/23 08:37 Dose: Not Given Nicotine Polacrilex (Nicotine Polacrilex 2 Mg Gum) 4 mg BUCCAL Q2H PRN PRN Reason: Nicotine Cravings Paliperidone Palmitate (Paliperidone Palmitate 234 Mg/1.5 Ml Syringe) 234 mg IM Q28D MARGOTH Risperidone (Risperidone 1 Mg Tablet) 1 mg PO BEDTIME MARGOTH Last Admin: 04/15/23 20:28 Dose: 1 mg Trazodone HCl (Trazodone Hcl 50 Mg Tablet) 50 mg PO BEDTIME MRX1 PRN PRN Reason: Insomnia Last Admin: 04/12/23 23:59 Dose: 50 mg Trazodone HCl (Trazodone Hcl 100 Mg Tablet) 100 mg PO BEDTIME MARGOTH Last Admin: 04/15/23 20:28 Dose: 100 mg Allergies Allergies Allergy/AdvReac Type Severity Reaction Status Date / Time No Known Allergies Allergy Verified 04/09/23 14:31 Assessment & Plan Assessment & Plan (1) Schizophrenia: Status: Acute Code(s): F20.9 - Schizophrenia, unspecified (2) Opioid abuse: Status: Acute Code(s): F11.10 - Opioid abuse, uncomplicated Plan Patient is a 58 year old male with hx of Schizophrenia and polysubstance use who presented to [facility] ER secondary to concern from his sister and ACCS worker d/t pt telling his sister that the voices were telling him to kill himself and endorsed suicidal ideation with plan to jump off a bridge. Plan: 04/12 increase risperidone to 1mg po qhs. He is also on Invega Sustenna 234mg IM, due in 04/24. clarify medication trial and see it he may respond better to different antipsychotic. 04/13 continue tx. 04/14 continue tx. 04/15: pt reports he is feeling improved. denies SI/AH. continue current mgmt. 04/16: stable, awaiting word from [facility]. continue current mgmt. Reason for continued inpatient stay Substantial Risk for: rapid decompensation Time Spent With Patient Time: Total time managing care of this patient today ____ minutes.
[2023-04-16 20:15] VITALS: BP 134/96; PULSE 81; RESP 16; TEMP 36.4; O2SAT 97
[2023-04-16] MEDS: risperiDONE 1 MG TABLET PO (21:40)
[2023-04-16] MEDS: traZODone HCL 100 MG TABLET PO (21:40)
[2023-04-16] MEDS: Atorvastatin Calcium 20 MG TABLET PO (21:40)
[2023-04-17] MEDS: Magnesium Hydrox/Alum Hydrox 30 ML ORAL.SUSP PO (00:40)
--- NOTE | 2023-04-17 06:21 | PC.NURSE ---
Vick has spent the entire evening and overnight in bed. He is calm and cooperative upon approach. he endorses mild to moderate depression but denies anxiety, suicidal/homicidal ideation and auditory/visual hallucinations. no behavioral concerns. encourage groups, encourage socialization with peers, monitor for safety, continue Plan Of Care
[2023-04-17 07:30] VITALS: BP 149/107; PULSE 72; RESP 20; TEMP 36.8; O2SAT 97
[2023-04-17] MEDS: cloNIDine HCL 0.1 MG TABLET PO (08:58)
[2023-04-17] MEDS: amLODIPine Besylate 10 MG TABLET PO (08:58)
[2023-04-17 10:13] VITALS: BP 142/100
--- NOTE | 2023-04-17 13:15 | P.PNPSI_ITS ---
Subjective Subjective Date of Service: 04/17/23 Reason For Visit: F20.9, F14.10 Interim History: pt reports he is feeling better daily. feels ready to go to [facility] if they have a bed. reports he is going to some groups, but he could go to more and will try to do so. per staff, withdrawnh, guarded. not attending groups. isolative. mild anx/dep. improved psychosis. BP 140/109, got PRN clonidine. Mental Status Exam Mental Status Exam Narrative: Pt is alert and oriented; behavior is calm; dressed in casual attire; mood is described as better than yesterday ; eye contact appropriate; Speech is normal rate, volume and prosody and not pressured; no psychomotor agitation/retardation present; thought process is organized and goal directed; Thought content is on tx; denies SI/SIBI/HI/AVH. Patients insight and judgment are fair. Diagnostics Vital Signs (24Hr): Vital Signs - 24 hr 04/16/23 20:15 04/17/23 07:30 04/17/23 10:13 Temperature 97.5 F 98.2 F Pulse Rate 81 72 Respiratory Rate 16 20 Blood Pressure 134/96 H 149/107 H 142/100 H Pulse Oximetry 97 97 Oxygen Delivery Method Room Air Room Air BMI result Body Mass Index 26.2 Labs 04/10/23 09:07 04/10/23 09:07 Medications Medications Current Medications Acetaminophen (Acetaminophen 325 Mg Tablet) 650 mg PO Q6H PRN PRN Reason: Headache/Pain Mild Scale (1-3) Al Hydroxide/Mg Hydroxide (Magnesium Hydrox/Alum Hydrox 30 Ml Oral.Susp) 30 ml PO Q6H PRN PRN Reason: Heartburn/Nausea Last Admin: 04/17/23 00:40 Dose: 30 ml Amlodipine Besylate (Amlodipine Besylate 10 Mg Tablet) 10 mg PO DAILY MARGOTH; Protocol Last Admin: 04/17/23 08:58 Dose: 10 mg Atorvastatin Calcium (Atorvastatin Calcium 20 Mg Tablet) 20 mg PO BEDTIME MARGOTH Last Admin: 04/16/23 21:40 Dose: 20 mg Clonidine HCl (Clonidine Hcl 0.1 Mg Tablet) 0.1 mg PO BID PRN; Protocol PRN Reason: Anxiety Last Admin: 04/17/23 08:58 Dose: 0.1 mg Clonidine HCl (Clonidine Hcl 0.1 Mg Tablet) 0.1 mg PO BID PRN; Protocol PRN Reason: anxiety Last Admin: 04/09/23 20:16 Dose: 0.1 mg Hydroxyzine HCl (Hydroxyzine Hcl 50 Mg Tablet) 50 mg PO TID PRN PRN Reason: anxiety Last Admin: 04/14/23 20:55 Dose: 50 mg Magnesium Hydroxide (Milk Of Magnesia 30 Ml Oral.Susp) 30 ml PO DAILY PRN PRN Reason: Constipation Nicotine (Nicotine 14 Mg Patch.Td24) 14 mg TRANSDERMA DAILY MARGOTH Last Admin: 04/17/23 08:59 Dose: Not Given Nicotine Polacrilex (Nicotine Polacrilex 2 Mg Gum) 4 mg BUCCAL Q2H PRN PRN Reason: Nicotine Cravings Paliperidone Palmitate (Paliperidone Palmitate 234 Mg/1.5 Ml Syringe) 234 mg IM Q28D MARGOTH Risperidone (Risperidone 1 Mg Tablet) 1 mg PO BEDTIME MARGOTH Last Admin: 04/16/23 21:40 Dose: 1 mg Trazodone HCl (Trazodone Hcl 50 Mg Tablet) 50 mg PO BEDTIME MRX1 PRN PRN Reason: Insomnia Last Admin: 04/12/23 23:59 Dose: 50 mg Trazodone HCl (Trazodone Hcl 100 Mg Tablet) 100 mg PO BEDTIME MARGOTH Last Admin: 04/16/23 21:40 Dose: 100 mg Allergies Allergies Allergy/AdvReac Type Severity Reaction Status Date / Time No Known Allergies Allergy Verified 04/09/23 14:31 Assessment & Plan Assessment & Plan (1) Schizophrenia: Status: Acute Code(s): F20.9 - Schizophrenia, unspecified (2) Opioid abuse: Status: Acute Code(s): F11.10 - Opioid abuse, uncomplicated Plan Patient is a 58 year old male with hx of Schizophrenia and polysubstance use who presented to [facility] ER secondary to concern from his sister and [facility]S worker d/t pt telling his sister that the voices were telling him to kill himself and endorsed suicidal ideation with plan to jump off a bridge. Plan: 04/12 increase risperidone to 1mg po qhs. He is also on Invega Sustenna 234mg IM, due in 04/24. clarify medication trial and see it he may respond better to different antipsychotic. 04/13 continue tx. 04/14 continue tx. 11/27: pt reports he is feeling improved. denies SI/AH. continue current mgmt. 04/16: stable, awaiting word from [facility]. continue current mgmt. 04/17: mood continues to improve daily. awaiting word from [facility]. reports he has been attending some groups but could attend more and will do so. Reason for continued inpatient stay Substantial Risk for: inability to function and rapid decompensation Time Spent With Patient Time: Total time managing care of this patient today _25___ minutes.
[2023-04-17 20:00] VITALS: BP 156/101; PULSE 66; RESP 20; TEMP 36.8; O2SAT 98
[2023-04-17] MEDS: Atorvastatin Calcium 20 MG TABLET PO (20:51)
[2023-04-17] MEDS: risperiDONE 1 MG TABLET PO (20:51)
[2023-04-17] MEDS: traZODone HCL 100 MG TABLET PO (20:51)
[2023-04-18 07:00] VITALS: BMI 26.2
[2023-04-18 08:01] VITALS: BP 136/93; PULSE 82; RESP 18; TEMP 36.4; O2SAT 94
[2023-04-18] MEDS: amLODIPine Besylate 10 MG TABLET PO (08:33)
--- NOTE | 2023-04-18 14:22 | P.PNPSI_ITS ---
Subjective Subjective Date of Service: 04/18/23 Reason For Visit: F20.9, F14.10 Interim History: calm, cooperative. bright, pleasant. states he continues to feel well. aware of plan for saturday discharge as [facility] has no beds. per staff, mild dep/anx. brighter, less RIS. pleasant, cooperative. slept about 6 hours. attending groups, participating. Mental Status Exam Mental Status Exam Narrative: Pt is alert and oriented; behavior is calm; dressed in casual attire; mood is described as good ; eye contact appropriate; Speech is normal rate, volume and prosody and not pressured; no psychomotor agitation/retardation present; thought process is organized and goal directed; affect full range, normo-intense, non- labile. Thought content is on tx; denies SI/SIBI/HI/AVH. Patients insight and judgment are fair. Diagnostics Vital Signs (24Hr): Vital Signs - 24 hr 04/17/23 20:00 04/18/23 08:01 Temperature 98.2 F 97.6 F Pulse Rate 66 82 Respiratory Rate 20 18 Blood Pressure 156/101 H 136/93 H Pulse Oximetry 98 94 Oxygen Delivery Method Room Air Room Air BMI result Body Mass Index 26.2 Labs 04/10/23 09:07 04/10/23 09:07 Medications Medications Current Medications Acetaminophen (Acetaminophen 325 Mg Tablet) 650 mg PO Q6H PRN PRN Reason: Headache/Pain Mild Scale (1-3) Al Hydroxide/Mg Hydroxide (Magnesium Hydrox/Alum Hydrox 30 Ml Oral.Susp) 30 ml PO Q6H PRN PRN Reason: Heartburn/Nausea Last Admin: 04/17/23 00:40 Dose: 30 ml Amlodipine Besylate (Amlodipine Besylate 10 Mg Tablet) 10 mg PO DAILY MARGOTH; Protocol Last Admin: 04/18/23 08:33 Dose: 10 mg Atorvastatin Calcium (Atorvastatin Calcium 20 Mg Tablet) 20 mg PO BEDTIME MARGOTH Last Admin: 04/17/23 20:51 Dose: 20 mg Clonidine HCl (Clonidine Hcl 0.1 Mg Tablet) 0.1 mg PO BID PRN; Protocol PRN Reason: Anxiety Last Admin: 04/17/23 08:58 Dose: 0.1 mg Clonidine HCl (Clonidine Hcl 0.1 Mg Tablet) 0.1 mg PO BID PRN; Protocol PRN Reason: anxiety Last Admin: 04/09/23 20:16 Dose: 0.1 mg Hydroxyzine HCl (Hydroxyzine Hcl 50 Mg Tablet) 50 mg PO TID PRN PRN Reason: anxiety Last Admin: 04/14/23 20:55 Dose: 50 mg Magnesium Hydroxide (Milk Of Magnesia 30 Ml Oral.Susp) 30 ml PO DAILY PRN PRN Reason: Constipation Nicotine (Nicotine 14 Mg Patch.Td24) 14 mg TRANSDERMA DAILY PRN PRN Reason: nicotine cravings Nicotine Polacrilex (Nicotine Polacrilex 2 Mg Gum) 4 mg BUCCAL Q2H PRN PRN Reason: Nicotine Cravings Paliperidone Palmitate (Paliperidone Palmitate 234 Mg/1.5 Ml Syringe) 234 mg IM Q28D MARGOTH Risperidone (Risperidone 1 Mg Tablet) 1 mg PO BEDTIME MARGOTH Last Admin: 04/17/23 20:51 Dose: 1 mg Trazodone HCl (Trazodone Hcl 50 Mg Tablet) 50 mg PO BEDTIME MRX1 PRN PRN Reason: Insomnia Last Admin: 04/12/23 23:59 Dose: 50 mg Trazodone HCl (Trazodone Hcl 100 Mg Tablet) 100 mg PO BEDTIME MARGOTH Last Admin: 04/17/23 20:51 Dose: 100 mg Allergies Allergies Allergy/AdvReac Type Severity Reaction Status Date / Time No Known Allergies Allergy Verified 04/09/23 14:31 Assessment & Plan Assessment & Plan (1) Schizophrenia: Status: Acute Code(s): F20.9 - Schizophrenia, unspecified (2) Opioid abuse: Status: Acute Code(s): F11.10 - Opioid abuse, uncomplicated Plan Patient is a 58 year old male with hx of Schizophrenia and polysubstance use who presented to [facility] ER secondary to concern from his sister and [facility]S worker d/t pt telling his sister that the voices were telling him to kill himself and endorsed suicidal ideation with plan to jump off a bridge. Plan: 04/12 increase risperidone to 1mg po qhs. He is also on Invega Sustenna 234mg IM, due in 04/24. clarify medication trial and see it he may respond better to different antipsychotic. 04/13 continue tx. 04/14 continue tx. 04/15: pt reports he is feeling improved. denies SI/AH. continue current mgmt. 04/16: stable, awaiting word from [facility]. continue current mgmt. 04/17: mood continues to improve daily. awaiting word from [facility]. reports he has been attending some groups but could attend more and will do so. 04/18: full range of affect, pleasant, bright. mood improved. [facility] without upcoming beds so pt planning to discharge saturday to home. continue current mgmt. Reason for continued inpatient stay Substantial Risk for: inability to function and rapid decompensation Time Spent With Patient Time: Total time managing care of this patient today __25__ minutes.
[2023-04-18 22:00] VITALS: BP 174/90; PULSE 73; TEMP 36.4; O2SAT 99
[2023-04-18] MEDS: traZODone HCL 100 MG TABLET PO (22:02)
[2023-04-18] MEDS: Atorvastatin Calcium 20 MG TABLET PO (22:02)
[2023-04-18] MEDS: risperiDONE 1 MG TABLET PO (22:02)
[2023-04-19 07:20] VITALS: BP 138/91; PULSE 75; RESP 18; TEMP 36.3; O2SAT 99
[2023-04-19] MEDS: amLODIPine Besylate 10 MG TABLET PO (08:20)
--- NOTE | 2023-04-19 14:46 | HO.PSYCHPN ---
Subjective Subjective Date of Service: 04/19/23 Reason For Visit: F20.9, F14.10 Interim History: doing well, stable, no complaints or requests. per staff, DC saturday at 11. good ADLs. reports whispers and denies VH. Mental Status Exam Mental Status Exam Narrative: Pt is alert and oriented; behavior is calm; dressed in casual attire; mood is described as good ; eye contact appropriate; Speech is normal rate, volume and prosody and not pressured; no psychomotor agitation/retardation present; thought process is organized and goal directed; affect full range, normo-intense, non-labile. Thought content is on tx; denies SI/SIBI/HI/AVH. Patients insight and judgment are fair. Diagnostics Vital Signs (24Hr): Vital Signs - 24 hr 04/18/23 22:00 04/19/23 07:20 Temperature 97.5 F 97.3 F Pulse Rate 73 75 Respiratory Rate 18 Blood Pressure 174/90 H 138/91 H Pulse Oximetry 99 99 Oxygen Delivery Method Room Air Room Air BMI result Body Mass Index 26.2 Labs 04/10/23 09:07 04/10/23 09:07 Medications Medications Current Medications Acetaminophen (Acetaminophen 325 Mg Tablet) 650 mg PO Q6H PRN PRN Reason: Headache/Pain Mild Scale (1-3) Al Hydroxide/Mg Hydroxide (Magnesium Hydrox/Alum Hydrox 30 Ml Oral.Susp) 30 ml PO Q6H PRN PRN Reason: Heartburn/Nausea Last Admin: 04/17/23 00:40 Dose: 30 ml Amlodipine Besylate (Amlodipine Besylate 10 Mg Tablet) 10 mg PO DAILY MARGOTH; Protocol Last Admin: 04/19/23 08:20 Dose: 10 mg Atorvastatin Calcium (Atorvastatin Calcium 20 Mg Tablet) 20 mg PO BEDTIME MARGOTH Last Admin: 04/18/23 22:02 Dose: 20 mg Clonidine HCl (Clonidine Hcl 0.1 Mg Tablet) 0.1 mg PO BID PRN; Protocol PRN Reason: Anxiety Last Admin: 04/17/23 08:58 Dose: 0.1 mg Hydroxyzine HCl (Hydroxyzine Hcl 50 Mg Tablet) 50 mg PO TID PRN PRN Reason: anxiety Last Admin: 04/14/23 20:55 Dose: 50 mg Magnesium Hydroxide (Milk Of Magnesia 30 Ml Oral.Susp) 30 ml PO DAILY PRN PRN Reason: Constipation Nicotine (Nicotine 14 Mg Patch.Td24) 14 mg TRANSDERMA DAILY PRN PRN Reason: nicotine cravings Nicotine Polacrilex (Nicotine Polacrilex 2 Mg Gum) 4 mg BUCCAL Q2H PRN PRN Reason: Nicotine Cravings Paliperidone Palmitate (Paliperidone Palmitate 234 Mg/1.5 Ml Syringe) 234 mg IM Q28D MARGOTH Risperidone (Risperidone 1 Mg Tablet) 1 mg PO BEDTIME MARGOTH Last Admin: 04/18/23 22:02 Dose: 1 mg Trazodone HCl (Trazodone Hcl 50 Mg Tablet) 50 mg PO BEDTIME MRX1 PRN PRN Reason: Insomnia Last Admin: 04/12/23 23:59 Dose: 50 mg Trazodone HCl (Trazodone Hcl 100 Mg Tablet) 100 mg PO BEDTIME MARGOTH Last Admin: 04/18/23 22:02 Dose: 100 mg Allergies Allergies Allergy/AdvReac Type Severity Reaction Status Date / Time No Known Allergies Allergy Verified 04/09/23 14:31 Assessment & Plan Assessment & Plan (1) Schizophrenia: Status: Acute Code(s): F20.9 - Schizophrenia, unspecified (2) Opioid abuse: Status: Acute Code(s): F11.10 - Opioid abuse, uncomplicated Plan Patient is a 58 year old male with hx of Schizophrenia and polysubstance use who presented to [facility] ER secondary to concern from his sister and [facility] worker d/t pt telling his sister that the voices were telling him to kill himself and endorsed suicidal ideation with plan to jump off a bridge. Plan: 04/12 increase risperidone to 1mg po qhs. He is also on Invega Sustenna 234mg IM, due in 04/24. clarify medication trial and see it he may respond better to different antipsychotic. 04/13 continue tx. 04/14 continue tx. 04/15: pt reports he is feeling improved. denies SI/AH. continue current mgmt. 04/16: stable, awaiting word from [facility]. continue current mgmt. 04/17: mood continues to improve daily. awaiting word from [facility]. reports he has been attending some groups but could attend more and will do so. 04/18: full range of affect, pleasant, bright. mood improved. [facility] without upcoming beds so pt planning to discharge saturday to home. continue current mgmt. 04/19: stable, improved. planning for saturday discharge. continue current mgmt. Reason for continued inpatient stay Substantial Risk for: inability to function and rapid decompensation Time Spent With Patient Time: Total time managing care of this patient today _25___ minutes.
[2023-04-19 20:10] VITALS: BP 139/83; PULSE 71; RESP 18; TEMP 36.7; O2SAT 95
[2023-04-19] MEDS: traZODone HCL 100 MG TABLET PO (20:35)
[2023-04-19] MEDS: risperiDONE 1 MG TABLET PO (20:35)
[2023-04-19] MEDS: Atorvastatin Calcium 20 MG TABLET PO (20:36)
[2023-04-20 06:00] VITALS: BP 144/92; PULSE 75; TEMP 36.7; O2SAT 98
[2023-04-20] MEDS: amLODIPine Besylate 10 MG TABLET PO (08:29)
--- NOTE | 2023-04-20 13:10 | HO.PSYCHPN ---
Subjective Subjective Date of Service: 04/20/23 Reason For Visit: F20.9, F14.10 Healthcare Proxy: No Guardianship: No Medical Problems Affecting Mental Status: No Interim History: Met with patient. Discussed with Nursing. Overall reports things are going well. Feels more focused and in control of his emotions. Feels positive regarding medications. Looking forward to discharge after the weekend. Sleep energy and appetite good. No psychosis. Medication Compliance: Yes Side effects from medications: No Attending Groups: No Review of Systems Acute medical concerns: No Review of Systems Review of Systems Nothing acute Mental Status Exam Mental Status Exam Narrative: Pleasant. Engaged. Organized. Euthymic. No SI. No HI. No agitation. No psychosis. Insight and judgment good Diagnostics Vital Signs (24Hr): Vital Signs - 24 hr 04/19/23 20:10 04/20/23 06:00 Temperature 98.1 F 98.1 F Pulse Rate 71 75 Respiratory Rate 18 Blood Pressure 139/83 144/92 H Pulse Oximetry 95 98 Oxygen Delivery Method Room Air Room Air BMI result Body Mass Index 26.2 Labs 04/10/23 09:07 04/10/23 09:07 Medications Medications Current Medications Acetaminophen (Acetaminophen 325 Mg Tablet) 650 mg PO Q6H PRN PRN Reason: Headache/Pain Mild Scale (1-3) Al Hydroxide/Mg Hydroxide (Magnesium Hydrox/Alum Hydrox 30 Ml Oral.Susp) 30 ml PO Q6H PRN PRN Reason: Heartburn/Nausea Last Admin: 04/17/23 00:40 Dose: 30 ml Amlodipine Besylate (Amlodipine Besylate 10 Mg Tablet) 10 mg PO DAILY MARGOTH; Protocol Last Admin: 04/20/23 08:29 Dose: 10 mg Atorvastatin Calcium (Atorvastatin Calcium 20 Mg Tablet) 20 mg PO BEDTIME MARGOTH Last Admin: 04/19/23 20:36 Dose: 20 mg Clonidine HCl (Clonidine Hcl 0.1 Mg Tablet) 0.1 mg PO BID PRN; Protocol PRN Reason: Anxiety Last Admin: 04/17/23 08:58 Dose: 0.1 mg Hydroxyzine HCl (Hydroxyzine Hcl 50 Mg Tablet) 50 mg PO TID PRN PRN Reason: anxiety Last Admin: 04/14/23 20:55 Dose: 50 mg Magnesium Hydroxide (Milk Of Magnesia 30 Ml Oral.Susp) 30 ml PO DAILY PRN PRN Reason: Constipation Nicotine (Nicotine 14 Mg Patch.Td24) 14 mg TRANSDERMA DAILY PRN PRN Reason: nicotine cravings Nicotine Polacrilex (Nicotine Polacrilex 2 Mg Gum) 4 mg BUCCAL Q2H PRN PRN Reason: Nicotine Cravings Paliperidone Palmitate (Paliperidone Palmitate 234 Mg/1.5 Ml Syringe) 234 mg IM Q28D MARGOTH Risperidone (Risperidone 1 Mg Tablet) 1 mg PO BEDTIME MARGOTH Last Admin: 04/19/23 20:35 Dose: 1 mg Trazodone HCl (Trazodone Hcl 50 Mg Tablet) 50 mg PO BEDTIME MRX1 PRN PRN Reason: Insomnia Last Admin: 04/12/23 23:59 Dose: 50 mg Trazodone HCl (Trazodone Hcl 100 Mg Tablet) 100 mg PO BEDTIME MARGOTH Last Admin: 04/19/23 20:35 Dose: 100 mg Allergies Allergies Allergy/AdvReac Type Severity Reaction Status Date / Time No Known Allergies Allergy Verified 04/09/23 14:31 Assessment & Plan Assessment & Plan (1) Schizophrenia: Status: Acute Code(s): F20.9 - Schizophrenia, unspecified (2) Opioid abuse: Status: Acute Code(s): F11.10 - Opioid abuse, uncomplicated Plan Patient is a 58 year old male with hx of Schizophrenia and polysubstance use who presented to [facility] ER secondary to concern from his sister and [facility]S worker d/t pt telling his sister that the voices were telling him to kill himself and endorsed suicidal ideation with plan to jump off a bridge. Plan: 04/12 increase risperidone to 1mg po qhs. He is also on Invega Sustenna 234mg IM, due in 04/24. clarify medication trial and see it he may respond better to different antipsychotic. 04/13 continue tx. 04/14 continue tx. 04/15: pt reports he is feeling improved. denies SI/AH. continue current mgmt. 04/16: stable, awaiting word from [facility]. continue current mgmt. 04/17: mood continues to improve daily. awaiting word from [facility]. reports he has been attending some groups but could attend more and will do so. 04/18: full range of affect, pleasant, bright. mood improved. [facility] without upcoming beds so pt planning to discharge saturday to home. continue current mgmt. 04/19: stable, improved. planning for saturday discharge. continue current mgmt. 04/20/23: no changes Reason for continued inpatient stay Substantial Risk for: rapid decompensation Time Spent With Patient Time: Total time managing care of this patient today ____ minutes.
[2023-04-20 20:00] VITALS: BP 113/61; PULSE 75; RESP 16; TEMP 36.4; O2SAT 96
[2023-04-20] MEDS: Atorvastatin Calcium 20 MG TABLET PO (20:52)
[2023-04-20] MEDS: traZODone HCL 100 MG TABLET PO (20:52)
[2023-04-20] MEDS: risperiDONE 1 MG TABLET PO (20:52)
[2023-04-21] MEDS: amLODIPine Besylate 10 MG TABLET PO (07:59)
[2023-04-21 08:01] VITALS: BP 151/106; PULSE 73; TEMP 36.3; O2SAT 95
--- NOTE | 2023-04-21 10:15 | P.PNPSI_ITS ---
Subjective Subjective Date of Service: 04/21/23 Reason For Visit: F20.9, F14.10 Interim History: Overall reports things continue to go well and looking forward to discharge after the weekend. Feels more focused and in control of his emotions. Feels positive regarding medications. Sleep energy and appetite good. No psychosis. Medication Compliance: Yes Side effects from medications: No Attending Groups: Intermittent Review of Systems Acute medical concerns: No Review of Systems Review of Systems Nothing acute Mental Status Exam Mental Status Exam Narrative: Pleasant. Engaged. Organized. Euthymic. No SI. No HI. No agitation. No psychosis. Insight and judgment good Diagnostics Vital Signs (24Hr): Vital Signs - 24 hr 04/20/23 20:00 04/21/23 08:01 Temperature 97.6 F 97.4 F Pulse Rate 75 73 Respiratory Rate 16 Blood Pressure 113/61 151/106 H Pulse Oximetry 96 95 Oxygen Delivery Method Room Air Room Air BMI result Body Mass Index 26.2 Labs 04/10/23 09:07 04/10/23 09:07 Medications Medications Current Medications Acetaminophen (Acetaminophen 325 Mg Tablet) 650 mg PO Q6H PRN PRN Reason: Headache/Pain Mild Scale (1-3) Al Hydroxide/Mg Hydroxide (Magnesium Hydrox/Alum Hydrox 30 Ml Oral.Susp) 30 ml PO Q6H PRN PRN Reason: Heartburn/Nausea Last Admin: 04/17/23 00:40 Dose: 30 ml Amlodipine Besylate (Amlodipine Besylate 10 Mg Tablet) 10 mg PO DAILY MARGOTH; Protocol Last Admin: 04/21/23 07:59 Dose: 10 mg Atorvastatin Calcium (Atorvastatin Calcium 20 Mg Tablet) 20 mg PO BEDTIME MARGOTH Last Admin: 04/20/23 20:52 Dose: 20 mg Clonidine HCl (Clonidine Hcl 0.1 Mg Tablet) 0.1 mg PO BID PRN; Protocol PRN Reason: Anxiety Last Admin: 04/17/23 08:58 Dose: 0.1 mg Hydroxyzine HCl (Hydroxyzine Hcl 50 Mg Tablet) 50 mg PO TID PRN PRN Reason: anxiety Last Admin: 04/14/23 20:55 Dose: 50 mg Magnesium Hydroxide (Milk Of Magnesia 30 Ml Oral.Susp) 30 ml PO DAILY PRN PRN Reason: Constipation Nicotine (Nicotine 14 Mg Patch.Td24) 14 mg TRANSDERMA DAILY PRN PRN Reason: nicotine cravings Nicotine Polacrilex (Nicotine Polacrilex 2 Mg Gum) 4 mg BUCCAL Q2H PRN PRN Reason: Nicotine Cravings Paliperidone Palmitate (Paliperidone Palmitate 234 Mg/1.5 Ml Syringe) 234 mg IM Q28D MARGOTH Risperidone (Risperidone 1 Mg Tablet) 1 mg PO BEDTIME MARGOTH Last Admin: 04/20/23 20:52 Dose: 1 mg Trazodone HCl (Trazodone Hcl 50 Mg Tablet) 50 mg PO BEDTIME MRX1 PRN PRN Reason: Insomnia Last Admin: 04/12/23 23:59 Dose: 50 mg Trazodone HCl (Trazodone Hcl 100 Mg Tablet) 100 mg PO BEDTIME MARGOTH Last Admin: 04/20/23 20:52 Dose: 100 mg Allergies Allergies Allergy/AdvReac Type Severity Reaction Status Date / Time No Known Allergies Allergy Verified 04/09/23 14:31 Assessment & Plan Assessment & Plan (1) Schizophrenia: Status: Acute Code(s): F20.9 - Schizophrenia, unspecified (2) Opioid abuse: Status: Acute Code(s): F11.10 - Opioid abuse, uncomplicated Plan Patient is a 58 year old male with hx of Schizophrenia and polysubstance use who presented to [facility] ER secondary to concern from his sister and [facility]S worker d/t pt telling his sister that the voices were telling him to kill himself and endorsed suicidal ideation with plan to jump off a bridge. Plan: 04/12 increase risperidone to 1mg po qhs. He is also on Invega Sustenna 234mg IM, due in 04/24. clarify medication trial and see it he may respond better to different antipsychotic. 04/13 continue tx. 04/14 continue tx. 04/15: pt reports he is feeling improved. denies SI/AH. continue current mgmt. 04/16: stable, awaiting word from [facility]. continue current mgmt. 04/17: mood continues to improve daily. awaiting word from [facility]. reports he has been attending some groups but could attend more and will do so. 04/18: full range of affect, pleasant, bright. mood improved. [facility] without upcoming beds so pt planning to discharge saturday to home. continue current mgmt. 04/19: stable, improved. planning for saturday discharge. continue current mgmt. 04/21/23: no changes Reason for continued inpatient stay Substantial Risk for: rapid decompensation Time Spent With Patient Time: Total time managing care of this patient today ____ minutes.
[2023-04-21 20:00] VITALS: BP 155/97; PULSE 73; RESP 18; TEMP 36.5; O2SAT 97
[2023-04-21] MEDS: risperiDONE 1 MG TABLET PO (20:54)
[2023-04-21] MEDS: Atorvastatin Calcium 20 MG TABLET PO (20:54)
[2023-04-21] MEDS: traZODone HCL 100 MG TABLET PO (21:16)
[2023-04-22 07:25] VITALS: BP 159/100; PULSE 77; RESP 18; TEMP 36.3; O2SAT 98
[2023-04-22] MEDS: amLODIPine Besylate 10 MG TABLET PO (09:49)
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
== END 2023-04-22 11:07 | disposition home or self-care (01) | DRG 885 ==
PROVIDERS: Registered Nurse; Admitting Provider Psychiatry & Neurology Psychiatry; Visit Provider Psychiatry & Neurology Psychiatry
DX: F20.9 Schizophrenia, unspecified (principal); R45.851 Suicidal ideations; K21.9 Gastro-esophageal reflux disease without esophagitis; F14.10 Cocaine abuse, uncomplicated; F11.10 Opioid abuse, uncomplicated; E78.5 Hyperlipidemia, unspecified; I10 Essential (primary) hypertension; F17.210 Nicotine dependence, cigarettes, uncomplicated; Z71.6 Tobacco abuse counseling; Z79.899 Other long term (current) drug therapy
CPT/HCPCS: 36415; 80053; 80061; 80076; 84439; 84443; 85025

== ENCOUNTER → 2023-04-09 14:21 | Outpatient (BNV) | payer MEDICARE, MEDICAID, SELFPAY | PROVIDERS: Admitting Provider Psychiatry & Neurology Psychiatry; Responsible Provider Registered Nurse; Visit Provider Registered Nurse | DX: F20.89 Other schizophrenia (principal); F11.10 Opioid abuse, uncomplicated | CPT/HCPCS: 90792; 99231; 99232; 99239 ==

== ENCOUNTER → 2023-04-09 14:21 | Outpatient (BNV) | payer MEDICARE, MEDICAID, SELFPAY | PROVIDERS: Admitting Provider Psychiatry & Neurology Psychiatry; Responsible Provider Registered Nurse; Visit Provider Physician Assistant | DX: I10 Essential (primary) hypertension (principal); E78.5 Hyperlipidemia, unspecified | CPT/HCPCS: 99221 ==